=== PATIENT | female | born 1985 | race Caucasian/White ===

== ENCOUNTER → 2016-10-17 | Day surgery (SDC) | payer OTHER ==
[~2016-10-17] VITALS: Ht 167.6 cm; Wt 118.8 kg
--- NOTE | 2016-10-19 11:32 | Operative Report ---
Operative/Inv Procedure Report Surgery Date: 10/17/16 Name of Procedure: 3 column hemorrhoidectomy Pre-Operative Diagnosis: Symptomatic hemorrhoids Post-Operative Diagnosis: Same Estimated Blood Loss: scant Surgeon/Information Security Engineer: BEVERLEY GOOD,PRANAY Le Anesthesia: local monitored anesthesi Operative/Procedure Note Note: After timeout and induction of anesthesia the patient was turned over into the prone jackknife position. Using lubrication, the anus was gently dilated digitally, a retractor was inserted after injection of local anesthetic, the prolapsing hemorrhoid was identified and picked up with a [place] hemorrhoid clamp proximally, and then opposite distally a hemostat was placed on the anal skin. While keeping tension on these 2 clamps, a triangular incision is made from the anal verge proximally into the mucosa just around the [place]. Then using the cautery both for blunt and sharp cutting or coag dissection the skin and underlying hemorrhoidal tissue is dissected off of the sphincter muscle and then proximally around the mucosa leaving the base of the hemorrhoidal tissue intact which is then suture ligated with 2-0 Vicryl suture at this apex. Then this hemorrhoid is excised and the defect is closed reapproximating the mucosa deep in the skin externally with 3-0 Vicryl suture leaving a small gap at the end for possible drainage. In this case the patient had 3 main hemorrhoidal clusters anterior posterior and slightly right lateral so we excised these 3 columns sequentially / separately, paying care to keep the specimens narrow especially at the mucosal side to avoid tension. Bacitracin and a sterile gauze dressing is applied. EBL minimal lap and sponge counts correct wound expectancy contaminated, IV fluids crystalloid complications none patient tolerated the procedure well was awakened and returned to recovery room in satisfactory condition.
== END ==
LOC: STS 00:43
DX: K64.8 Other hemorrhoids (principal); E66.01 Morbid (severe) obesity due to excess calories
CPT/HCPCS: 81025; 88304; C9399; J2250; J2405